=== PATIENT | female | born 1975 | race Caucasian/White ===

== ENCOUNTER 2021-12-05 15:17 | Observation (INO) ==
[2021-12-05] MEDS ORDERED: Isovue-370 500 ML BOTTLE IVP ONE (15:56)
[2021-12-05 16:09] LABS: Basophils % 0.3 %; Eosinophils # 0.1 K/mcL (0.0-0.6); Hematocrit 45.6 % (35.3-44.9); Hemoglobin 14.8 g/dL (11.5-15.4); Immature Granulocytes % 0.2 % (0-4); Lymphocytes # 2.7 K/mcL (0.6-4.6); Mean Corpuscular HGB Conc 32.5 g/dL (31.6-35.5); Mean Corpuscular Hemoglobin 29.7 pg (28.0-33.3); Mean Corpuscular Volume 91.6 fL (83.0-100.0); Mean Platelet Volume 9.4 fL (9.4-12.4); Monocytes # 0.6 K/mcL (0.0-1.3); Monocytes % 6.3 %; Neutrophils # 5.9 K/mcL (1.6-8.9); Platelet Count 328 K/mcL (140-400); Red Blood Count 4.98 M/mcL (3.82-4.97); Red Cell Distribution Width 12.9 % (11.5-14.5); Segmented Neutrophils % 63.2 %; White Blood Count 9.3 K/mcL (4.3-11.1)
[2021-12-05] MEDS ORDERED: Aspirin 81 MG TAB.CHEW PO ONE ×2 (16:27→17:34)
[2021-12-05 16:30] LABS: Alanine Aminotransferase 14 Units/L (7-52); Albumin 4.4 g/dL (3.5-5.7); Albumin/Globulin Ratio 1.3 (1.1-2.2); Alkaline Phosphatase 44 Units/L (34-104); Aspartate Amino Transferase 20 Units/L (13-39); BUN/Creatinine Ratio 12 (6-26); Bilirubin,Total 1.2 mg/dL (0.3-1.0); Blood Urea Nitrogen 10 mg/dL (6-20); Calcium 9.5 mg/dL (8.6-10.3); Carbon Dioxide 28 mEq/L (23-29); Chloride 102 mEq/L (98-107); Globulin 3.4 g/dL (2.4-3.5); Glucose 95 mg/dL (70-105); Osmolality,Calculated 279 (280-300); Sodium 135 mEq/L (136-145); Total Protein 7.8 g/dL (6.4-8.9); Troponin I < 0.03 ng/mL (< 0.04); eGFR For African Americans > 60 (> 60); eGFR For Non-African Americans > 60 (> 60)
[2021-12-05] MEDS ORDERED: Mag Hydrox/Al Hydrox/Simeth 30 ML UDC PO PRN (16:55)
[2021-12-05] MEDS ORDERED: Ondansetron ODT 4 MG TAB.RAPDIS SL PRN (16:55)
[2021-12-05] MEDS ORDERED: Melatonin 3 MG TABLET PO PRN (16:55)
[2021-12-05] MEDS ORDERED: Naloxone 0.4 MG/ML INJ IVP PRN (16:55)
[2021-12-05] MEDS ORDERED: Acetaminophen 325 MG TABLET PO PRN (16:55)
[2021-12-05] MEDS ORDERED: Perflutren Lipid Microsphere 1.3 ML in 0.9 % Sodium Chloride 8.7 ML IVP PRN (17:38)
[2021-12-05 17:48] LABS: Folate 14.9 ng/mL (3.0-16.0)
[2021-12-06 02:24] VITALS: O2SAT 97
[2021-12-06 05:06] LABS: Hematocrit 42.6 % (35.3-44.9); Hemoglobin 13.5 g/dL (11.5-15.4); Mean Corpuscular HGB Conc 31.7 g/dL (31.6-35.5); Mean Corpuscular Hemoglobin 28.8 pg (28.0-33.3); Mean Platelet Volume 9.5 fL (9.4-12.4); Platelet Count 284 K/mcL (140-400); Red Blood Count 4.68 M/mcL (3.82-4.97); Red Cell Distribution Width 12.8 % (11.5-14.5); White Blood Count 7.7 K/mcL (4.3-11.1)
[2021-12-06 05:14] LABS: Prothrombin Time 11.4 Seconds (9.4-12.1)
[2021-12-06 05:25] LABS: Alanine Aminotransferase 9 Units/L (7-52); Albumin 3.6 g/dL (3.5-5.7); Albumin/Globulin Ratio 1.3 (1.1-2.2); Alkaline Phosphatase 37 Units/L (34-104); Aspartate Amino Transferase 12 Units/L (13-39); BUN/Creatinine Ratio 14 (6-26); Bilirubin,Total 0.8 mg/dL (0.3-1.0); Blood Urea Nitrogen 12 mg/dL (6-20); Calcium 8.8 mg/dL (8.6-10.3); Carbon Dioxide 27 mEq/L (23-29); Chloride 106 mEq/L (98-107); Chol/HDL Ratio 3.8 (0-4.9); Cholesterol 137 mg/dL (< 200); Globulin 2.8 g/dL (2.4-3.5); Glucose 101 mg/dL (70-105); HDL Cholesterol 36 mg/dL (40-59); LDL Cholesterol,Calculated 81 mg/dL (< 100); Osmolality,Calculated 284 (280-300); Potassium 3.9 mEq/L (3.5-5.1); Sodium 137 mEq/L (136-145); Total Protein 6.4 g/dL (6.4-8.9); Triglycerides 100 mg/dL (< 150); eGFR For African Americans > 60 (> 60); eGFR For Non-African Americans > 60 (> 60)
[2021-12-06 05:29] LABS: Estimated Average Glucose 114 mg/dl; Hemoglobin A1C 5.6 %
[2021-12-06 08:21] VITALS: BP 121/76; PULSE 59; TEMP 97.7
[2021-12-06] MEDS ORDERED: Aspirin 81 MG TAB.CHEW PO SCH (09:00)
[2021-12-06 09:09] LABS: Triiodothyronine (T3) Total 118 ng/dL (87-178)
== END 2021-12-06 10:36 | disposition home or self-care (01) ==
LOC: EMEROOARM 15:17 → 3BNU 15:17 → SUATTDRO 17:24 → 3BNU 18:53
PROVIDERS: ADMIT Internal Medicine; ATTEND Internal Medicine